=== PATIENT | female | born 1995 | race Caucasian/White ===

== ENCOUNTER 2022-04-17 21:16 | Emergency (ER) | payer OTHER ==
[2022-04-17] MEDS ORDERED: Sodium Chloride 0.9% 1,000 ML ONE ×2 (21:34→22:45)
[2022-04-17 21:58] LABS: #Basophils 0.1 thou/uL (0.0-0.2); #Eosinphils 0.2 thou/uL (0.0-0.7); #Lymphocytes 1.4 thou/uL (1.20-3.40); #Monocytes 0.9 thou/uL (0.11-0.59); #Neutrophils 13.8 thou/uL (1.40-6.50); %Basophils 0.3 % (0.0-1.0); %Eosinophils 1.5 % (0.0-10.0); %Lymphocytes 8.4 % (21.0-51.0); %Monocytes 5.5 % (0.0-10.0); %Neutrophils 84.4 % (42.0-75.0); Hemoglobin 14.2 g/dL (12.0-16.0); Mean Corpuscular Hemoglobin 29.3 pg (27.0-31.0); Mean Corpuscular Volume 94.5 fL (78.0-98.0); Mean Platelet Volume 7.9 fL (7.4-10.4); Platelet Count 281 thou/uL (130-400); Red Blood Cell (RBC) Count 4.86 mill/uL (4.20-5.40); White Blood Cell (WBC) Count 16.3 thou/uL (4.8-10.8)
[2022-04-17] MEDS ORDERED: diphenhydrAMINE 50 MG/ML VIAL ONE (22:02)
[2022-04-17] MEDS ORDERED: Metoclopramide HCl 10 MG/2 ML VIAL ONE (22:02)
[2022-04-17 22:13] LABS: ALT (SGPT) 19 U/L (8-55); AST (SGOT) 16 U/L (5-34); Albumin 4.7 g/dL (3.5-5.0); Alkaline Phosphatase 73 U/L (40-110); Anion Gap 18 mmol/L (10-20); BUN (Urea Nitrogen) 18 mg/dL (7.0-18.7); Bilirubin, Total 0.6 mg/dL (0.2-1.2); Calc. Creatinine Clearance 0 mL/min (70-130); Calcium 9.7 mg/dL (7.8-10.44); Carbon Dioxide 23 mmol/L (22-29); Chloride 102 mmol/L (98-107); Estimated GFR 117; Globulin 2.8 g/dL (2.4-3.5); Glucose 120 mg/dL (70-105); Potassium 3.8 mmol/L (3.5-5.1); Protein, Total 7.5 g/dL (6.0-8.3); Sodium 139 mmol/L (136-145)
[2022-04-17 22:21] LABS: BHCG - Serum Negative (NEGATIVE); Pregs Control Bar Appear? YES (CONTROL BAR)
[2022-04-17] MEDS ORDERED: Dicyclomine 20 MG/2 ML VIAL ONE (22:45)
== END 2022-04-18 00:05 | disposition home or self-care (01) ==
LOC: NAV ERS 21:16
DX: A08.4 Viral intestinal infection, unspecified (principal)
CPT/HCPCS: 80053; 84703; 85025; 96361; 96365; 96372; 96375; J0500; J1200; J2765; J7050

== ENCOUNTER 2022-12-27 18:25 | Emergency (ER) | payer OTHER ==
[2022-12-27] MEDS ORDERED: Ipratropium/Albuterol 3 ML NEB ONE (18:57)
== END 2022-12-27 19:57 | disposition home or self-care (01) ==
LOC: NAV ERS 18:25
DX: J20.9 Acute bronchitis, unspecified (principal); I10 Essential (primary) hypertension; Z79.899 Other long term (current) drug therapy
CPT/HCPCS: 71046; 93005; 94640; 94760; J7620